=== PATIENT | male | born 1970 | race American Indian/Alaskan Native ===

== ENCOUNTER 2020-08-16 12:03 | Emergency (ER) | payer OTHER, BC ==
[2020-08-16 12:10] VITALS: BP 193/114
[2020-08-16] MEDS ORDERED: IBUPROFEN 800 MG TAB PO ONE (15:00)
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
== END 2020-08-16 16:19 | disposition home or self-care (01) ==
LOC: ED 12:03
DX: S13.4XXA Sprain of ligaments of cervical spine, initial encounter (principal); S39.012A Strain of muscle, fascia and tendon of lower back, initial encounter; I10 Essential (primary) hypertension; Z88.1 Allergy status to other antibiotic agents; Z88.6 Allergy status to analgesic agent; V89.2XXA Person injured in unspecified motor-vehicle accident, traffic, initial encounter; Y93.89 Activity, other specified; Y92.410 Unspecified street and highway as the place of occurrence of the external cause; Y99.8 Other external cause status
CPT/HCPCS: 72040; 72100; 99283